=== PATIENT | female | born 1965 | race African-American/Black ===

== ENCOUNTER 2017-06-21 03:28 | Observation (INO) ==
[2017-06-21] MEDS ORDERED: 0.9 % Sodium Chloride 1,000 ML IVC ONE ×2 (03:39→04:27)
[2017-06-21] MEDS ORDERED: *HR* Nalbuphine 20 MG/ML AMPUL IVP ONE (03:39)
[2017-06-21] MEDS ORDERED: Ondansetron 4 MG/2 ML VIAL IVP ONE (03:40)
--- NOTE | 2017-06-21 03:41 | Emergency Department Note ---
Disposition Clinical Impression: Enteritis, Dehydration Disposition: Admitted As Inpatient Condition: Fair Abdominal Pain HPI - General Chief Complaint: ED Abdominal Pain Stated Complaint: lower abd pain Time Seen by Provider: 06/21/17 03:34 Source: patient, family Mode of arrival: private vehicle Limitations: no limitations Nursing Notes Reviewed: Yes Vital Signs Reviewed: Yes - History of Present Illness Pt Subjective Complaint: abdominal pain Onset (ago): hour(s) (7pm) Consistency: constant Location: suprapubic Pain Severity: severe Pain Scale: 10 Quality: cramping, stabbing, sharp Radiation: none Migration to: no migration Improves with: nothing Worsens with: nothing Context: new medications (on 3rd day of Progestin taper - prescribed by her METEOROLOGIST LIAISON for menorrhagia) Associated symptoms: Reports: diarrhea (several "loose"bowel movements today). Denies: nausea, vomiting, fever, chills, constipation, dysuria, hematochezia, melena, hematuria, anorexia, syncope Treatments prior to arrival: none - Related Data LMP (females 10-50): last week Home Medications Medication Instructions Recorded Confirmed Accupril 06/01/15 06/01/15 Chlorthalidone 09/26/16 Klor-Con 09/26/16 09/26/16 Pantoprazole 09/26/16 Previous Rx's Medication Instructions Recorded Nitrofurantoin (BID) [Macrobid] 100 mg PO BID #14 capsule 09/26/16 Phenazopyridine HCl [Pyridium] 200 mg PO TID #6 tab 09/26/16 Allergies Allergy/AdvReac Type Severity Reaction Status Date / Time [id number] Reductase Allergy Hives Verified 09/26/16 13:36 Inhibitor [Statins] All systems ED: reviewed and negative except as stated. Review of Systems: As Per HPI Constitutional: Denies: fever, chills, weakness Cardiovascular: Denies: chest pain, palpitations, dyspnea on exertion Respiratory: Denies: dyspnea Gastrointestinal: Reports: as per HPI, abdominal pain, diarrhea. Denies: nausea , vomiting, constipation Genitourinary: Reports: as per HPI, abnormal menses. Denies: urgency, dysuria, frequency, hematuria, discharge Musculoskeletal: Denies: back pain, neck pain, joint swelling, arthralgia Neurological: Denies: headache Hematological/Lymphatic: Denies: easy bleeding, easy bruising Abdominal Pain PMH - Past Medical History Medical history: Reports: diabetes, hypertension Female Surgical History: Reports: cholecystectomy [employer] history: Reports: bilateral tubal ligation Psychiatric history: Reports: no psych history - Social History Smoking status: Never smoker Alcohol use: Reports: none Drug use: Reports: none Physical Exam - General Limitations: no limitations General appearance: alert, in distress - Head Head exam: atraumatic, normocephalic, normal inspection - Eye Eye exam: Present: normal appearance, PERRL. Absent: scleral icterus, conjunctival injection, periorbital swelling - ENT ENT exam: mucous membranes moist - Neck Neck exam: Present: normal inspection, full ROM, trachea midline. Absent: meningismus - Chest Chest inspection: Present: normal inspection - Respiratory Respiratory exam: Present: normal lung sounds bilaterally. Absent: respiratory distress - Cardiovascular Cardiovascular exam: Present: normal rhythm, tachycardia - Abdominal Exam Abdominal exam: Present: soft, tenderness. Absent: distention, guarding, rebound, rigidity, mass, pulsatile mass Abdominal tenderness: Present: suprapubic, moderate - Female External Exam: Present: pt deferred Speculum Exam: Present: Pt Deferred Bimanual Exam: Present: Pt Deferred - Extremities Exam Extremities exam: Present: normal inspection. Absent: pedal edema - Back Exam Back exam: Present: normal inspection. Absent: CVA tenderness (R), CVA tenderness (L) - Neurological Exam Neurological exam: Present: alert, oriented X3, CN II-XII intact, normal gait - Psychiatric Psychiatric exam: Present: normal affect, normal mood - Skin Skin exam: Present: warm, dry, intact, normal color Course Course Narrative: Patient presents from home with c/o severe lower abdominal pain that was acute in onset at 7pm. She has had heavy vaginal bleeding since 06/03 and was recently started on Progestin. She denies known and has had a loreto and BTL in the past, but no other abdominal surgeries. She appears uncomfortable but non- toxic. She is able to ambulate from triage and to and from the bathroom without difficulty. Pain meds, fluids and labs have been ordered. CT will be ordered once renal panel is resulted. CT shows enteritis per Radiologist. Will start ABX and admit. Patient still having pain and nausea. Labs reflect infectious etiology of enteritis. Also dehydration. - Reevaluation(s) Reevaluation #1: patient vomited several times. Zofran given. Time: 03:57 Reevaluation #2: Pain was better, but now has returned. Additional meds ordered. CT pending. Time: 05:16 Vital Signs Temperature 97.6 F 06/21/17 03:30 Pulse Rate 143 06/21/17 03:30 Respiratory Rate 22 06/21/17 03:30 Blood Pressure 149/90 06/21/17 03:30 O2 Sat by Pulse Oximetry 100 06/21/17 03:30 Temperature 97.6 F 06/21/17 03:30 Pulse Rate 99 06/21/17 05:05 Respiratory Rate 18 06/21/17 05:05 Blood Pressure 132/85 06/21/17 05:05 O2 Sat by Pulse Oximetry 97 06/21/17 05:05 Oxygen Delivery Oxygen Delivery Room Air Abdominal Pain - Medical Records Medical records reviewed: Yes I reviewed the patient's medical records. - Lab Data Lab results reviewed: Yes I reviewed the patient's lab results. Lab results narrative: Laboratory Last Values WBC 15.3 K/mcL (4.3-11.1) H D 06/21/17 03:57 RBC 3.91 M/mcL (3.82-4.97) 06/21/17 03:57 Hgb 9.8 g/dL (11.5-15.4) L D 06/21/17 03:57 Hct 30.5 % (35.3-44.9) L 06/21/17 03:57 MCV 78.0 fL (83.0-100.0) L 06/21/17 03:57 MCH 25.1 pg (28.0-33.3) L 06/21/17 03:57 MCHC 32.1 g/dL (31.6-35.5) 06/21/17 03:57 RDW 14.6 % (11.5-14.5) H 06/21/17 03:57 Plt Count 535 K/mcL (140-400) H D 06/21/17 03:57 MPV 10.6 fL (9.4-12.4) 06/21/17 03:57 Immature Gran % 0.5 % (0-4) 06/21/17 03:57 Seg Neutrophils % 81.8 % 06/21/17 03:57 Lymphocytes % 13.6 % 06/21/17 03:57 Monocytes % 3.6 % 06/21/17 03:57 Eosinophils % 0.2 % 06/21/17 03:57 Basophils % 0.3 % 06/21/17 03:57 Neutrophils # 12.5 K/mcL (1.6-8.9) H 06/21/17 03:57 Lymphocytes # 2.1 K/mcL (0.6-4.6) 06/21/17 03:57 Monocytes # 0.6 K/mcL (0.0-1.3) 06/21/17 03:57 Eosinophils # 0.0 K/mcL (0.0-0.6) 06/21/17 03:57 Basophils # 0.1 K/mcL (0.0-0.2) 06/21/17 03:57 Sodium 136 mEq/L (136-145) 06/21/17 03:57 Potassium 3.3 mEq/L (3.5-4.5) L 06/21/17 03:57 Chloride 100 mEq/L (98-109) 06/21/17 03:57 Carbon Dioxide 22 mEq/L (19-29) 06/21/17 03:57 BUN 10 mg/dL (7-20) 06/21/17 03:57 Creatinine 0.84 mg/dL (0.57-1.11) 06/21/17 03:57 Est GFR ( Amer) > 60 (> 60) 06/21/17 03:57 Est GFR (Non-Af Amer) > 60 (> 60) 06/21/17 03:57 BUN/Creatinine Ratio 12 (6-26) 06/21/17 03:57 Glucose 150 mg/dL (70-99) H 06/21/17 03:57 Calculated Osmolality 284 (280-300) 06/21/17 03:57 Calcium 9.7 mg/dL (8.6-10.8) 06/21/17 03:57 Ur Specimen Adequacy See below A 06/21/17 04:00 Urine Color Dark Yellow (Yellow) 06/21/17 04:00 Urine Clarity Cloudy (Clear) A 06/21/17 04:00 Urine pH 7.5 pH Units (5.0-8.0) 06/21/17 04:00 Ur Specific [place] 1.028 (1.010-1.025) H 06/21/17 04:00 Urine Protein 30 mg/dL (Neg-Trace) H 06/21/17 04:00 Urine Glucose (UA) Normal mg/dL (Normal) 06/21/17 04:00 Urine Ketones >=160 mg/dL (Negative) H 06/21/17 04:00 Urine Blood Moderate (Negative) H 06/21/17 04:00 Urine Nitrite Negative (Negative) 06/21/17 04:00 Urine Bilirubin Small (Negative) H 06/21/17 04:00 Urine Urobilinogen Normal mg/dL (Normal) 06/21/17 04:00 Ur Leukocyte Esterase Small (Negative) H 06/21/17 04:00 Urine Microscopic RBC 3-5 per hpf (0-3) H 06/21/17 04:00 Urine Microscopic WBC 5-15 per hpf (0-3) H 06/21/17 04:00 Ur Squamous Epith Cells Many per lpf (None-Few) H 06/21/17 04:00 Urine Bacteria Few per hpf (None-Few) 06/21/17 04:00 Hyaline Casts Few per lpf (None-Few) 06/21/17 04:00 Urine Mucus Few (Few) 06/21/17 04:00 Ur Culture Indicated? YES (NO) A 06/21/17 04:00 Urine Test Negative (Negative) 06/21/17 04:00 Blood Type O POSITIVE 06/21/17 03:57 Antibody Screen NEGATIVE 06/21/17 03:57 Result diagrams: 06/21/17 03:57 06/21/17 03:57 Lab Results 06/21/17 06/21/17 06/21/17 Range/Units 03:57 03:57 03:57 WBC 15.3 H D (4.3-11.1) K/mcL RBC 3.91 (3.82-4.97) M/mcL Hgb 9.8 L D (11.5-15.4) g/dL Hct 30.5 L (35.3-44.9) % MCV 78.0 L (83.0-100.0) fL MCH 25.1 L (28.0-33.3) pg MCHC 32.1 (31.6-35.5) g/dL RDW 14.6 H (11.5-14.5) % Plt Count 535 H D (140-400) K/mcL MPV 10.6 (9.4-12.4) fL Immature Gran % 0.5 (0-4) % Seg Neutrophils % 81.8 % Lymphocytes % 13.6 % Monocytes % 3.6 % Eosinophils % 0.2 % Basophils % 0.3 % Neutrophils # 12.5 H (1.6-8.9) K/mcL Lymphocytes # 2.1 (0.6-4.6) K/mcL Monocytes # 0.6 (0.0-1.3) K/mcL Eosinophils # 0.0 (0.0-0.6) K/mcL Basophils # 0.1 (0.0-0.2) K/mcL Sodium 136 (136-145) mEq/L Potassium 3.3 L (3.5-4.5) mEq/L Chloride 100 (98-109) mEq/L Carbon Dioxide 22 (19-29) mEq/L BUN 10 (7-20) mg/dL Creatinine 0.84 (0.57-1.11) mg/dL Est GFR ( Amer) > 60 (> 60) Est GFR (Non-Af Amer) > 60 (> 60) BUN/Creatinine Ratio 12 (6-26) Glucose 150 H (70-99) mg/dL Calculated Osmolality 284 (280-300) Calcium 9.7 (8.6-10.8) mg/dL Ur Specimen Adequacy Urine Color (Yellow) Urine Clarity (Clear) Urine pH (5.0-8.0) pH Units Ur Specific [place] (1.010-1.025) Urine Protein (Neg-Trace) mg/dL Urine Glucose (UA) (Normal) mg/dL Urine Ketones (Negative) mg/dL Urine Blood (Negative) Urine Nitrite (Negative) Urine Bilirubin (Negative) Urine Urobilinogen (Normal) mg/dL Ur Leukocyte Esterase (Negative) Urine Microscopic RBC (0-3) per hpf Urine Microscopic WBC (0-3) per hpf Ur Squamous Epith Cells (None-Few) per lpf Urine Bacteria (None-Few) per hpf Hyaline Casts (None-Few) per lpf Urine Mucus (Few) Ur Culture Indicated? (NO) Urine Test (Negative) Blood Type O POSITIVE Antibody Screen NEGATIVE 06/21/17 06/21/17 Range/Units 04:00 04:00 WBC (4.3-11.1) K/mcL RBC (3.82-4.97) M/mcL Hgb (11.5-15.4) g/dL Hct (35.3-44.9) % MCV (83.0-100.0) fL MCH (28.0-33.3) pg MCHC (31.6-35.5) g/dL RDW (11.5-14.5) % Plt Count (140-400) K/mcL MPV (9.4-12.4) fL Immature Gran % (0-4) % Seg Neutrophils % % Lymphocytes % % Monocytes % % Eosinophils % % Basophils % % Neutrophils # (1.6-8.9) K/mcL Lymphocytes # (0.6-4.6) K/mcL Monocytes # (0.0-1.3) K/mcL Eosinophils # (0.0-0.6) K/mcL Basophils # (0.0-0.2) K/mcL Sodium (136-145) mEq/L Potassium (3.5-4.5) mEq/L Chloride (98-109) mEq/L Carbon Dioxide (19-29) mEq/L BUN (7-20) mg/dL Creatinine (0.57-1.11) mg/dL Est GFR ( Amer) (> 60) Est GFR (Non-Af Amer) (> 60) BUN/Creatinine Ratio (6-26) Glucose (70-99) mg/dL Calculated Osmolality (280-300) Calcium (8.6-10.8) mg/dL Ur Specimen Adequacy See below A Urine Color Dark Yellow (Yellow) Urine Clarity Cloudy A (Clear) Urine pH 7.5 (5.0-8.0) pH Units Ur Specific [place] 1.028 H (1.010-1.025) Urine Protein 30 H (Neg-Trace) mg/dL Urine Glucose (UA) Normal (Normal) mg/dL Urine Ketones >=160 H (Negative) mg/dL Urine Blood Moderate H (Negative) Urine Nitrite Negative (Negative) Urine Bilirubin Small H (Negative) Urine Urobilinogen Normal (Normal) mg/dL Ur Leukocyte Esterase Small H (Negative) Urine Microscopic RBC 3-5 H (0-3) per hpf Urine Microscopic WBC 5-15 H (0-3) per hpf Ur Squamous Epith Cells Many H (None-Few) per lpf Urine Bacteria Few (None-Few) per hpf Hyaline Casts Few (None-Few) per lpf Urine Mucus Few (Few) Ur Culture Indicated? YES A (NO) Urine Test Negative (Negative) Blood Type Antibody Screen - Radiology Data Radiology results reviewed: Yes I reviewed the patient's radiology results. Abdomen/Pelvis CT 06/21/17 04:26 IMPRESSION: Enteritis, likely infectious or inflammatory. D/ / Jeffrey Mann MD / Jeffrey Mann MD Interpreting Provider: Jeffrey Mann MD Attestation Statement - Attestation Attestation: I, Rell Perrin MD, personally evaluated this patient and discussed their management with the midlevel provicer, PAC/PAINTING DEPARTMENT SUPERVISOR. I reviewed the midlevel provider 's note and agree with the documented findings, medical decision making, and plan of care. 51-year-old female presents to the emergency department with a complaint of severe periumbilical abdominal pain that started about 7 PM this evening associated with multiple episodes of nausea and vomiting. No diarrhea. No melena, hematemesis, or hematochezia. No fever. No urinary symptoms. Patient has recently been having problems with heavy vaginal bleeding but was started on medication and is currently resolved. On examination patient is a well-developed well-nourished female in no acute distress. She is alert and oriented 3. There is no cyanosis or diaphoresis. Breath sounds are clear and equal bilaterally. Heart regular rate and rhythm. Abdomen is soft sounds. There is moderate periumbilical abdominal tenderness with no guarding or rebound tenderness. No CVA tenderness. Labs reviewed. WBC 15.3. A CT of the abdomen and pelvis obtained and shows marked small bowel wall thickening in the central and lower abdomen consistent with enteritis of inflammatory or infectious etiology. Hospitalist, Dr. White, was consulted and accepted admission of the patient.
[2017-06-21 04:12] LABS: Bilirubin,Urine Small (Negative); Blood,Urine Moderate (Negative); Clarity,Urine Cloudy (Clear); Color,Urine Dark Yellow (Yellow); Glucose,Urine (UA) Normal (Normal); Ketones,Urine >=160 mg/dL (Negative); Leukocyte Esterase,Urine Small (Negative); Nitrite,Urine Negative (Negative); PH,Urine 7.5 pH Units (5.0-8.0); Protein,Urine 30 mg/dL (Neg-Trace); Specific Gravity,Urine 1.028 (1.010-1.025); Urobilinogen,Urine Normal (Normal)
[2017-06-21 04:12] LABS: Basophils % 0.3 %; Eosinophils % 0.2 %; Hematocrit 30.5 % (35.3-44.9); Immature Granulocytes % 0.5 % (0-4); Lymphocytes # 2.1 K/mcL (0.6-4.6); Lymphocytes % 13.6 %; Mean Corpuscular HGB Conc 32.1 g/dL (31.6-35.5); Mean Corpuscular Hemoglobin 25.1 pg (28.0-33.3); Mean Platelet Volume 10.6 fL (9.4-12.4); Monocytes # 0.6 K/mcL (0.0-1.3); Monocytes % 3.6 %; Neutrophils # 12.5 K/mcL (1.6-8.9); Platelet Count 535 K/mcL (140-400); Red Blood Count 3.91 M/mcL (3.82-4.97); Red Cell Distribution Width 14.6 % (11.5-14.5); Segmented Neutrophils % 81.8 %
[2017-06-21 04:15] LABS: Basophils # 0.1 K/mcL (0.0-0.2); Hemoglobin 9.8 g/dL (11.5-15.4)
[2017-06-21 04:17] LABS: Bacteria,Urine Few per hpf (None-Few); Hyaline Casts,Urine Few per lpf (None-Few); Mucus,Urine Few (Few); Squamous Epithelial Cell,Urine Many per lpf (None-Few)
[2017-06-21 04:27] LABS: BUN/Creatinine Ratio 12 (6-26); Blood Urea Nitrogen 10 mg/dL (7-20); Calcium 9.7 mg/dL (8.6-10.8); Carbon Dioxide 22 mEq/L (19-29); Chloride 100 mEq/L (98-109); Glucose 150 mg/dL (70-99); Osmolality,Calculated 284 (280-300); Potassium 3.3 mEq/L (3.5-4.5); Sodium 136 mEq/L (136-145); eGFR For African Americans > 60 (> 60); eGFR For Non-African Americans > 60 (> 60)
[2017-06-21] MEDS ORDERED: *HR* Nalbuphine 20 MG/ML AMPUL IVP STA (05:02)
[2017-06-21] MEDS ORDERED: MetroNIDAZOLE 500 MG/100 ML 500 MG/100 ML BAG IVPB ONE (05:17)
[2017-06-21] MEDS ORDERED: *HR* Nalbuphine 20 MG/ML AMPUL IVP PRN (08:42)
--- NOTE | 2017-06-21 09:40 | Internal Med History&Physical ---
Date of Encounter: 06/21/17 Time of Encounter: 09:37 Assessment and Plan (1) Acute gastroenteritis Current visit: Yes Status: Acute Diagnosed based on severe midabdominal pain, elevated WBC and CT findings consistent with enteritis Etiology could be infectious either viral or bacterial versus inflammatory. Plan: Start Levaquin and Flagyl for possible bacterial etiology. Check stool GI panel if the patient has diarrhea. We will provide pain control with IV morphine. Start clear liquid diet. We will treat nausea with IV Zofran (2) Dehydration Current visit: Yes Status: Acute Appears clinically dehydrated. We will treat her with IV fluids. (3) Hypokalemia Current visit: Yes Status: Acute IV potassium supplementation. Check magnesium level and replete if necessary. (4) Essential hypertension Current visit: Yes Status: Acute Resume oral antihypertensive medications (5) DVT prophylaxis Current visit: Yes Status: Acute Subcutaneous heparin. (6) Microcytic anemia Current visit: Yes Status: Acute CBC reveals hypochromic microcytic anemia with elevated RDW suggestive of iron deficiency anemia. She reports heavy menses. We will check iron panel. Internal Medicine - H&P: HPI Chief complaint: Abdominal pain Admitted From: Emergency Dept Plans for Post Hospital Care: Home History of present illness: Ms. Spann is a 51 year old female who presented to the hospital for evaluation of severe mid abdominal pain which started abruptly yesterday at 7 PM , associated with nausea and 1 episode of nonbloody vomiting this morning. Pain improved with Nubain which she was administered in the emergency department. Denies having diarrhea, had 2 normal nonbloody bowel movements yesterday, denies fevers and chills. Denies sick contacts, recent travel, unusual foods, recent antibiotic use. Family history positive for stroke in the patient's father and type 2 diabetes the patient's mother Social history: Denies tobacco alcohol and drug use. Past Med Surg Social Fam HX - Past Medical History Medical history: diabetes, GERD, hypertension Psychiatric history: no psych history - Past Surgical History Surgical History: cholecystectomy - Social History Smoking Status: Never smoker Smokeless Tobacco Status: No Alcohol use: none Drug use: none Internal Medicine - H&P: Meds Accupril 06/01/15 [History] Chlorthalidone 09/26/16 [History] Klor-Con 09/26/16 [History] Nitrofurantoin (BID) [Macrobid] 100 mg PO BID #14 capsule 09/26/16 [Rx] Pantoprazole 09/26/16 [History] Phenazopyridine HCl [Pyridium] 200 mg PO TID #6 tab 09/26/16 [Rx] 3 Allergy/AdvReac Type Severity Reaction Status Date / Time [id number] Reductase Allergy Hives Verified 09/26/16 13:36 Inhibitor [Statins] All Systems PM: A 10-system review of systems was performed and is negative for pertinent findings except as documented above in the HPI. - Constitutional Vitals: Temp Pulse Resp BP Pulse Ox 97.7 F 96 17 141/85 98 06/21/17 07:53 06/21/17 07:53 06/21/17 07:53 06/21/17 07:53 06/21/17 07:53 General appearance: Present: mild distress, A&O X 3, answers questions appropriately - Eye Eye exam: Present: PERRL, conjuntiva pink, sclera anicteric Pupils: Present: PERRL - Respiratory Respiratory exam: Present: CTAB. Absent: accessory muscle use, rales, rhonchi, wheezes - Cardiovascular Cardiovascular exam: Present: RRR, +S1, +S2. Absent: diastolic murmur, gallop, rubs, systolic murmur - GI/Abdominal GI/Abdominal exam: Present: normal bowel sounds, soft, no peritoneal signs. Absent: distended, tenderness - Extremities Exam Extremities exam: Present: warm, radial pulses palpable and symmetrical. Absent : calf tenderness, cyanotic, pedal edema - Skin Skin exam: Present: dry, intact Internal Med - H&P Results - Labs CBC & Chem 7: 06/21/17 03:57 06/21/17 03:57 - Impressions CT abdomen and pelvis shows normal appendix, edema of the small bowel wall consistent with enteritis and small amount of pelvic ascites. This study was personally reviewed.
[2017-06-21] MEDS ORDERED: Acetaminophen 325 MG TABLET PO PRN (09:50)
[2017-06-21] MEDS ORDERED: Naloxone 0.4 MG/ML INJ IVP PRN (09:50)
[2017-06-21] MEDS ORDERED: *HR* HYDROcodone/Acet 5/325 mg TABLET PO PRN (09:50)
[2017-06-21] MEDS ORDERED: *HR* Promethazine 25 MG/ML VIAL IVP PRN (09:50)
[2017-06-21 10:34] LABS: Magnesium 1.5 mg/dL (1.6-2.6)
[2017-06-21] MEDS: 0.9 % Sodium Chloride w KCl 20 MEQ/1,000 ML MLS IVC SCH ×2 (11:09→17:01)
[2017-06-21] MEDS: *HR* Morphine 2 MG/ML SYRINGE IVP PRN ×2 (11:21→22:48)
[2017-06-21] MEDS: *HR* Heparin 5,000 UNIT/ML VIAL SQ SCH ×2 (14:38→20:28)
[2017-06-21] MEDS: MetroNIDAZOLE 500 MG/100 ML 500 MG/100 ML BAG IVPB SCH ×2 (17:04→23:54)
[2017-06-21] MEDS: Ondansetron 4 MG/2 ML VIAL IVP PRN (17:46)
[2017-06-21] MEDS: Famotidine 20 MG/2 ML VIAL IVP SCH (18:36)
[2017-06-21] MEDS ORDERED: Iron Sucrose Complex 400 MG in 0.9 % Sodium Chloride 250 ML IVPB ONE (18:51)
[2017-06-21] MEDS: Lisinopril 20 MG TABLET PO SCH (22:09)
[2017-06-22] MEDS: *HR* Morphine 2 MG/ML SYRINGE IVP PRN (03:04)
[2017-06-22] MEDS: Ondansetron 4 MG/2 ML VIAL IVP PRN (03:08)
[2017-06-22] MEDS: *HR* Heparin 5,000 UNIT/ML VIAL SQ SCH (04:06)
[2017-06-22 05:38] LABS: Basophils # 0.1 K/mcL (0.0-0.2); Basophils % 0.4 %; Eosinophils % 0.1 %; Hematocrit 25.6 % (35.3-44.9); Immature Granulocytes % 0.5 % (0-4); Lymphocytes # 1.2 K/mcL (0.6-4.6); Lymphocytes % 9.2 %; Mean Corpuscular HGB Conc 31.6 g/dL (31.6-35.5); Mean Corpuscular Hemoglobin 25.3 pg (28.0-33.3); Mean Platelet Volume 10.4 fL (9.4-12.4); Monocytes # 0.6 K/mcL (0.0-1.3); Monocytes % 4.2 %; Neutrophils # 11.3 K/mcL (1.6-8.9); Nucleated Red Blood Cells 0.2 /100 WBC (0); Platelet Count 408 K/mcL (140-400); Red Cell Distribution Width 14.7 % (11.5-14.5); Segmented Neutrophils % 85.6 %
[2017-06-22 05:40] LABS: Hemoglobin 8.1 g/dL (11.5-15.4)
[2017-06-22 05:54] LABS: Alanine Aminotransferase 45 Units/L (0-55); Albumin 2.5 g/dL (3.5-5.0); Albumin/Globulin Ratio 0.9 (1.1-2.2); Alkaline Phosphatase 39 Units/L (38-126); Aspartate Amino Transferase 34 Units/L (5-34); BUN/Creatinine Ratio 8 (6-26); Bilirubin,Total 0.3 mg/dL (0.2-1.2); Blood Urea Nitrogen 6 mg/dL (7-20); Carbon Dioxide 22 mEq/L (19-29); Chloride 107 mEq/L (98-109); Globulin 2.9 g/dL (2.4-3.5); Glucose 179 mg/dL (70-99); Magnesium 1.2 mg/dL (1.6-2.6); Osmolality,Calculated 290 (280-300); Potassium 2.9 mEq/L (3.5-4.5); Sodium 139 mEq/L (136-145); Total Protein 5.4 g/dL (6.0-8.3); eGFR For African Americans > 60 (> 60); eGFR For Non-African Americans > 60 (> 60)
[2017-06-22 05:56] LABS: Calcium 7.3 mg/dL (8.6-10.8)
[2017-06-22] MEDS: Famotidine 20 MG/2 ML VIAL IVP SCH ×2 (06:04→22:50)
[2017-06-22] MEDS: MetroNIDAZOLE 500 MG/100 ML 500 MG/100 ML BAG IVPB SCH ×3 (08:03→23:24)
[2017-06-22] MEDS: Lisinopril 20 MG TABLET PO SCH (08:04)
[2017-06-22] MEDS ORDERED: Magnesium Sulfate 1 GM in D5% in Water 100 ML IVPB ONE (09:14)
[2017-06-22] MEDS ORDERED: Potassium Chloride 40 MEQ, Lidocaine 1% 2 ML in D5% in Water 500 ML IVPB ONE (11:29)
[2017-06-22] MEDS ORDERED: D5% in Water 1,000 ML IVC PRN (12:01)
[2017-06-22] MEDS ORDERED: Dextrose Gel 15 GM PO PRN ×2 (12:01)
[2017-06-22] MEDS ORDERED: *HR* Dextrose 50 % in Water (Syg) 50 ML SYRINGE IVP PRN (12:01)
[2017-06-22] MEDS: Insulin LISPRO 300 UNITS/3 ML VIAL SQ SCH ×2 (15:32→22:51)
--- NOTE | 2017-06-22 18:03 | Internal Med Progress Note ---
Date of Encounter: 06/22/17 Time of Encounter: 11:00 - Assessment and plan (1) Acute gastroenteritis Current Visit: Yes Status: Acute Assessment and plan: -CT of the abdomen/pelvis showed enteritis, likely infectious or inflammatory. -Continue clear liquid diet and continue IV Cipro/Flagyl. -Re-evaluate on 06/23/17. (2) Microcytic anemia Current Visit: Yes Status: Acute Assessment and plan: -Patient with a hemoglobin of 8.1 this morning; patient did have a hemoglobin of 12 and 2016 per EMR. -Patient is hemodynamically stable -Suspect acute blood loss anemia secondary to metromenorrhagia; patient being evaluated/worked up by LASTING ROOM MACHINE OPERATOR as outpatient. -Continue monitor hemoglobin levels. (3) Essential hypertension Current Visit: Yes Status: Acute Assessment and plan: -Blood pressure control; continue home medications. (4) Hypokalemia Current Visit: Yes Status: Acute Assessment and plan: -Patient with a potassium of 2.9 this morning after replacements were given on 06/21/17. -An additional 40 mEq of KCl was given today. -Patient has been placed on telemetry and will monitor potassium. (5) DVT prophylaxis Current Visit: Yes Status: Acute Assessment and plan: Patient to ambulate; we will not give chemical prophylaxis secondary to anemia above. - Subjective Interval history: Patient complains of some nausea/abdominal discomfort overnight after by mouth. - Constitutional Vitals: Temp Pulse Resp BP Pulse Ox 99.1 F 72 18 131/78 98 06/22/17 16:02 06/22/17 16:02 06/22/17 16:02 06/22/17 16:02 06/22/17 16:02 General appearance: Present: mild distress, A&O X 3, answers questions appropriately - Respiratory Respiratory exam: Present: CTAB. Absent: accessory muscle use, rales, rhonchi, wheezes - Cardiovascular Cardiovascular exam: Present: RRR, +S1, +S2. Absent: diastolic murmur, gallop, rubs, systolic murmur - GI/Abdominal GI/Abdominal exam: Present: normal bowel sounds, soft, no peritoneal signs. Absent: distended, tenderness Internal Medicine: Result - Labs CBC & Chem 7: 06/22/17 05:03 06/22/17 05:03 Labs: Short CBC 06/22/17 Range/Units 05:03 WBC 13.2 H (4.3-11.1) K/mcL Hgb 8.1 L D (11.5-15.4) g/dL Hct 25.6 L (35.3-44.9) % Plt Count 408 H (140-400) K/mcL Neutrophils # 11.3 H (1.6-8.9) K/mcL BMP 06/22/17 05:03 Sodium 139 Potassium 2.9 L Chloride 107 Carbon Dioxide 22 BUN 6 L Creatinine 0.73 Glucose 179 H Calcium 7.3 L D Liver Function 06/22/17 Range/Units 05:03 Total Bilirubin 0.3 (0.2-1.2) mg/dL AST 34 (5-34) Units/L ALT 45 (0-55) Units/L Alkaline Phosphatase 39 (38-126) Units/L Albumin 2.5 L (3.5-5.0) g/dL Consult Discharge Plan - Plan Referrals: Steve Whittaker MD [Primary Care Provider] -
[2017-06-22 18:37] LABS: Hematocrit 24.5 % (35.3-44.9); Hemoglobin 7.5 g/dL (11.5-15.4)
[2017-06-23 00:37] LABS: Hematocrit 21.6 % (35.3-44.9); Hemoglobin 6.7 g/dL (11.5-15.4)
[2017-06-23] MEDS: *HR* Heparin 5,000 UNIT/ML VIAL SQ SCH (05:06)
[2017-06-23] MEDS: Famotidine 20 MG/2 ML VIAL IVP SCH (06:44)
[2017-06-23 07:09] LABS: Hematocrit 21.5 % (35.3-44.9); Hemoglobin 6.7 g/dL (11.5-15.4)
[2017-06-23] MEDS: Insulin LISPRO 300 UNITS/3 ML VIAL SQ SCH ×4 (08:35→21:15)
[2017-06-23] MEDS ORDERED: NON-FORMULARY MEDICATION 1 EACH EACH (Quinapril Hcl [Accupril] 20 MG) PO SCH (09:00)
[2017-06-23] MEDS: Lisinopril 20 MG TABLET PO SCH (09:21)
[2017-06-23] MEDS: MetroNIDAZOLE 500 MG/100 ML 500 MG/100 ML BAG IVPB SCH ×2 (09:21→16:32)
--- NOTE | 2017-06-23 11:38 | Internal Med Progress Note ---
<Will Dawson - Last Filed: 06/23/17 14:03> Date of Encounter: 06/23/17 - Constitutional Vitals: Temp Pulse Resp BP Pulse Ox 98.4 F 97 16 127/81 99 06/23/17 12:10 06/23/17 12:10 06/23/17 12:10 06/23/17 12:10 06/23/17 12:10 Internal Medicine: Result - Labs CBC & Chem 7: 06/23/17 06:15 06/22/17 18:16 Labs: Short CBC 06/22/17 06/23/17 06/23/17 Range/Units 18:16 00:27 06:15 Hgb 7.5 L 6.7 L 6.7 L (11.5-15.4) g/dL Hct 24.5 L 21.6 L 21.5 L (35.3-44.9) % BMP 06/22/17 18:16 Potassium 3.2 L Consult Discharge Plan - Plan Referrals: Steve Whittaker MD [Primary Care Provider] - 07/01/17 1:00 pm - Attending Attestation I have independently seen and examined this patient on 06/23/17 and discussed plan of care with the patient and the resident physician 51 F with PMH of HTN. admitted and being managed for acute gastritis and severe iron deficiency anemia secondary to metromenorrhagia her symptom have improved but she has severe anemia with Hb 6.7 and iron level of 15 She endorsed prior history of iron deficiency Physical exam: VSS, ambulatory. Not in any form of distress. Speaks full sentences. Chest is claer, abdomen is soft and not tender, no pedal edema. labs: Leukocytosis, anemia, hypomagnessemia, hypokalemia A/P: Gastroenteritis: By CT scan, continue antibiotics, give 1 unit RBC for iron deficiency anemia, give IV iron today. Start po iron tmrw, replace electrolytes, continue other meds Rest of details as in resident physician's documentation <Ana Dumont H - Last Filed: 06/23/17 16:29> Date of Encounter: 06/23/17 Time of Encounter: 11:00 - Assessment and plan (1) Acute gastroenteritis Current Visit: Yes Status: Acute Assessment and plan: -CT of the abdomen/pelvis showed enteritis, likely infectious or inflammatory. -Advanced diet to cardiac diet today as patient was hungry. -Day 3 IV Cipro/Flagyl. -Patient to be discharged home tomorrow provided hemoglobin is stable as her nausea and vomiting has resolved. (2) Microcytic anemia Current Visit: Yes Status: Acute Assessment and plan: -Patient with a hemoglobin of 6.7 this morning; patient did have a hemoglobin of 12 and 2016 per EMR. -Patient is hemodynamically stable -Suspect acute blood loss anemia secondary to metromenorrhagia; patient being evaluated/worked up by CIRCUIT RECORDER as outpatient. -Patient given 1 unit of red blood cells today. We will recheck H&H. -We added oral iron 100 mg daily with ascorbic acid and Colace. Patient did not want consultation with hematology. She will follow up with her primary care provider on an outpatient basis. - If stable, discharge tomorrow. (3) Hypokalemia Current Visit: Yes Status: Acute Assessment and plan: -Patient with a potassium of 3.2 yesterday after replacements were given on 06/21. -Continue with repletion of potassium. (4) Dehydration Current Visit: Yes Status: Acute Assessment and plan: Patient is is adequately hydrated and has advanced to a cardiac diet. (5) Essential hypertension Current Visit: Yes Status: Acute Assessment and plan: -Blood pressure control; continue home medications. (6) DVT prophylaxis Current Visit: Yes Status: Acute Assessment and plan: Patient to ambulate; we will not give chemical prophylaxis secondary to anemia above. - Subjective Interval history: Miss Spann is a 51-year-old female with past medical history of diabetes, GERD , and hypertension. She presented to the hospital with acute gastroenteritis. She is currently being treated for anemia which the patient says is chronic. She was also found to have hypokalemia, which the patient says is chronic and due to her chlorthalidone hypertension medication. Patient is confused about what taking so long for her to be discharged home from the hospital. She did not want to receive a transfusion of blood, however, after questions were answered, she felt much more comfortable. She declined us offering to consult hematology if her anemia. She would like to be discharged home from the hospital tomorrow. - Constitutional Vitals: Temp Pulse Resp BP Pulse Ox 98.0 F 97 14 126/83 99 06/23/17 11:00 06/23/17 11:00 06/23/17 11:00 06/23/17 11:00 06/23/17 11:00 General appearance: Present: A&O X 3, pleasant, no acute distress, answers questions appropriately - Respiratory Respiratory exam: Present: CTAB. Absent: accessory muscle use, rales, rhonchi, wheezes - Cardiovascular Cardiovascular exam: Present: RRR, +S1, +S2. Absent: diastolic murmur, gallop, rubs, systolic murmur - GI/Abdominal GI/Abdominal exam: Present: normal bowel sounds, soft, tenderness (mild lower abdominal). Absent: firm, guarding, rebound, rigid, no peritoneal signs - Extremities Exam Extremities exam: Present: warm, radial pulses palpable and symmetrical. Absent : calf tenderness, cyanotic, pedal edema Internal Medicine: Result - Labs CBC & Chem 7: 06/23/17 15:10 06/22/17 18:16 Labs: Short CBC 06/22/17 06/23/17 06/23/17 Range/Units 18:16 00:27 06:15 Hgb 7.5 L 6.7 L 6.7 L (11.5-15.4) g/dL Hct 24.5 L 21.6 L 21.5 L (35.3-44.9) % BMP 06/22/17 18:16 Potassium 3.2 L
[2017-06-23] MEDS ORDERED: 0.9 % Sodium Chloride 250 ML ONE (11:45)
[2017-06-23 15:38] LABS: Basophils # 0.1 K/mcL (0.0-0.2); Basophils % 0.5 %; Eosinophils # 0.1 K/mcL (0.0-0.6); Eosinophils % 1.3 %; Hematocrit 26.6 % (35.3-44.9); Hemoglobin 8.2 g/dL (11.5-15.4); Immature Granulocytes % 3.3 % (0-4); Lymphocytes # 1.8 K/mcL (0.6-4.6); Lymphocytes % 19.2 %; Mean Corpuscular HGB Conc 30.8 g/dL (31.6-35.5); Mean Corpuscular Hemoglobin 25.2 pg (28.0-33.3); Mean Corpuscular Volume 81.6 fL (83.0-100.0); Mean Platelet Volume 10.2 fL (9.4-12.4); Monocytes # 0.6 K/mcL (0.0-1.3); Monocytes % 6.9 %; Neutrophils # 6.4 K/mcL (1.6-8.9); Nucleated Red Blood Cells 3.6 /100 WBC (0); Platelet Count 385 K/mcL (140-400); Red Blood Count 3.26 M/mcL (3.82-4.97); Red Cell Distribution Width 15.4 % (11.5-14.5); Segmented Neutrophils % 68.8 %
[2017-06-23 16:27] LABS: BUN/Creatinine Ratio 6 (6-26); Carbon Dioxide 28 mEq/L (19-29); Chloride 105 mEq/L (98-109); Glucose 155 mg/dL (70-99); Osmolality,Calculated 288 (280-300); Potassium 3.7 mEq/L (3.5-4.5); Sodium 139 mEq/L (136-145); eGFR For African Americans > 60 (> 60); eGFR For Non-African Americans > 60 (> 60)
[2017-06-23 16:30] LABS: Blood Urea Nitrogen 5 mg/dL (7-20); Calcium 8.7 mg/dL (8.6-10.8)
[2017-06-24] MEDS: MetroNIDAZOLE 500 MG/100 ML 500 MG/100 ML BAG IVPB SCH ×2 (00:11→07:50)
[2017-06-24 05:01] LABS: Basophils % 0.5 %; Eosinophils # 0.1 K/mcL (0.0-0.6); Eosinophils % 1.8 %; Hematocrit 24.9 % (35.3-44.9); Immature Granulocytes % 1.8 % (0-4); Lymphocytes # 2.1 K/mcL (0.6-4.6); Lymphocytes % 26.4 %; Mean Corpuscular HGB Conc 32.1 g/dL (31.6-35.5); Mean Corpuscular Hemoglobin 26.4 pg (28.0-33.3); Mean Corpuscular Volume 82.2 fL (83.0-100.0); Mean Platelet Volume 10.1 fL (9.4-12.4); Monocytes # 0.5 K/mcL (0.0-1.3); Monocytes % 6.8 %; Nucleated Red Blood Cells 3.5 /100 WBC (0); Platelet Count 358 K/mcL (140-400); Red Blood Count 3.03 M/mcL (3.82-4.97); Red Cell Distribution Width 15.5 % (11.5-14.5); Segmented Neutrophils % 62.7 %
[2017-06-24 05:12] LABS: BUN/Creatinine Ratio 7 (6-26); Blood Urea Nitrogen 5 mg/dL (7-20); Calcium 8.6 mg/dL (8.6-10.8); Carbon Dioxide 26 mEq/L (19-29); Chloride 103 mEq/L (98-109); Glucose 110 mg/dL (70-99); Osmolality,Calculated 280 (280-300); Potassium 3.2 mEq/L (3.5-4.5); Sodium 136 mEq/L (136-145); eGFR For African Americans > 60 (> 60); eGFR For Non-African Americans > 60 (> 60)
[2017-06-24 07:01] VITALS: BP 119/75
[2017-06-24] MEDS: Insulin LISPRO 300 UNITS/3 ML VIAL SQ SCH (07:46)
[2017-06-24] MEDS: Lisinopril 20 MG TABLET PO SCH (07:51)
--- NOTE | 2017-06-24 08:33 | Internal Med Progress Note ---
Date of Encounter: 06/24/17 Time of Encounter: 08:31 - Assessment and plan (1) Acute gastroenteritis Current Visit: Yes Status: Acute Assessment and plan: -CT of the abdomen/pelvis showed enteritis, likely infectious or inflammatory. -Advanced diet to cardiac diet today as patient was hungry. -Day 4 IV Cipro/Flagyl. -Patient to be discharged home today as her hemoglobin is stable as her nausea and vomiting has resolved. (2) Microcytic anemia Current Visit: Yes Status: Acute (3) Hypokalemia Current Visit: Yes Status: Acute (4) Dehydration Current Visit: Yes Status: Acute (5) Essential hypertension Current Visit: Yes Status: Acute (6) DVT prophylaxis Current Visit: Yes Status: Acute - Subjective Interval history: Miss Spann is a 51-year-old female with past medical history of diabetes, GERD , and hypertension. She presented to the hospital with acute gastroenteritis. She is currently being treated for anemia which the patient says is chronic. She was also found to have hypokalemia, which the patient says is chronic and due to her chlorthalidone hypertension medication. Patient has rested comfortably, and she wishes to discharge from the hospital today. She was speaking to her TANK HOOP BENDER's nurse when I got to the room. Patient has resumed vaginal bleeding this morning she said she anticipated as they discontinued the hormone pill that she was taking to stop her bleeding during this hospital admission. Patient feels comfortable managing this problem as an outpatient as she will be in contact with her TANK HOOP BENDER. She denies any fatigue, dizziness, nausea, vomiting, diarrhea. She denies any chest pain or shortness of breath. - Constitutional Vitals: Temp Pulse Resp BP Pulse Ox 98.5 F 91 15 119/75 97 06/24/17 06:56 06/24/17 06:56 06/24/17 06:56 06/24/17 06:56 06/24/17 06:56 General appearance: Present: A&O X 3, pleasant, no acute distress, answers questions appropriately - Respiratory Respiratory exam: Present: CTAB. Absent: accessory muscle use, rales, rhonchi, wheezes - Cardiovascular Cardiovascular exam: Present: RRR, +S1, +S2. Absent: diastolic murmur, gallop, rubs, systolic murmur - GI/Abdominal GI/Abdominal exam: Present: normal bowel sounds, soft, no peritoneal signs. Absent: distended, tenderness - Extremities Exam Extremities exam: Present: warm, radial pulses palpable and symmetrical. Absent : calf tenderness, cyanotic, pedal edema Internal Medicine: Result - Labs CBC & Chem 7: 06/24/17 04:43 06/24/17 04:43 Labs: Short CBC 06/23/17 06/24/17 Range/Units 15:10 04:43 WBC 9.3 7.9 (4.3-11.1) K/mcL Hgb 8.2 L D 8.0 L (11.5-15.4) g/dL Hct 26.6 L 24.9 L (35.3-44.9) % Plt Count 385 358 (140-400) K/mcL Neutrophils # 6.4 5.0 (1.6-8.9) K/mcL BMP 06/23/17 06/24/17 15:10 04:43 Sodium 139 136 Potassium 3.7 3.2 L Chloride 105 103 Carbon Dioxide 28 26 BUN 5 L 5 L Creatinine 0.87 0.73 Glucose 155 H 110 H Calcium 8.7 D 8.6 Consult Discharge Plan - Plan Referrals: Steve Whittaker MD [Primary Care Provider] - 07/01/17 1:00 pm
--- NOTE | 2017-06-24 08:43 | Discharge Summary ---
<Ana Dumont H - Last Filed: 06/24/17 11:52> Date of Encounter: 06/24/17 Time of Encounter: 08:42 - Discharge Diagnosis (1) Acute gastroenteritis Priority: Primary Status: Acute (2) Microcytic anemia Priority: Secondary Status: Acute (3) Hypokalemia Priority: Secondary Status: Acute (4) Dehydration Priority: Secondary Status: Acute (5) Essential hypertension Priority: Secondary Status: Acute (6) DVT prophylaxis Priority: Secondary Status: Acute - Discharge Medications Prescriptions: Ascorbic Acid [Vitamin C] 500 mg PO DAILY #30 tablet Ciprofloxacin [Cipro] 500 mg PO BID #12 tablet Docusate [Colace] 100 mg PO DAILY PRN #30 capsule PRN Reason: Constipation Ferrous Sulfate 325 mg PO BIDWM #60 tablet metroNIDAZOLE [Flagyl] 500 mg PO TID #18 tablet Home Medications: Chlorthalidone 25 mg PO DAILY 09/26/16 [History] Pantoprazole Sodium 40 mg PO DAILY 09/26/16 [History] Potassium Chloride [K-Tab ER] 40 meq PO BID 09/26/16 [History] Quinapril HCl [Accupril] 20 mg PO DAILY 06/21/17 [History] metFORMIN [Glucophage] 500 mg PO BID 06/21/17 [History] Acetaminophen [Tylenol] 650 mg PO Q6HR PRN tablet 06/24/17 [Rx] Ascorbic Acid [Vitamin C] 500 mg PO DAILY #30 tablet 06/24/17 [Rx] Ciprofloxacin [Cipro] 500 mg PO BID #12 tablet 06/24/17 [Rx] Docusate [Colace] 100 mg PO DAILY PRN #30 capsule 06/24/17 [Rx] Ferrous Sulfate 325 mg PO BIDWM #60 tablet 06/24/17 [Rx] metroNIDAZOLE [Flagyl] 500 mg PO TID #18 tablet 06/24/17 [Rx] Allergies/Adverse Reactions: 3 Allergy/AdvReac Type Severity Reaction Status Date / Time [id number] Reductase Allergy Hives Verified 09/26/16 13:36 Inhibitor [Statins] Date of admission: 06/21/17 05:44 Primary care physician: Steve Whittaker, - Patient Status Disposition: Home, Self-Care Condition: Fair Overall status at discharge: patient is progressing back to baseline - Discharge Instructions Follow Up With: Steev Whittaker MD [Primary Care Provider] - 07/01/17 1:00 pm Additional Instructions: Follow-up appointments: If there is not an appointment listed below, please call your physician and schedule a follow-up appointment. If you have congestive heart failure and your symptoms return, make an appointment with your physician. Medication List: Carry an up to date list of medications you are taking at all time. We have given you an updated medication list including any new medications that you have been prescribed. Please provide that list to your primary provider Symptoms: If your condition changes or you experience any of the following symptoms, notify your physician immediately: Unusual or worsening pain, fever, persistent nausea and vomiting, bleeding, increase in swelling (especially in your legs), sudden weight gain, extreme dizziness, chest pain, increased drainage or redness from a wound or incision. Go to the emergency department if you experience a problem with breathing. Weights: If you have a history of swelling or shortness of breath, weigh yourself daily and notify your physician if you have a weight gain of two or more pounds in one day or 5 or more pounds in a week. If you experience any of the warning signs for stroke: Sudden numbness or weakness of the face, arm or leg; especially on one side of the body, sudden confusion, trouble speaking or understanding, sudden trouble seeing in one or both eyes, sudden trouble walking, dizziness, loss of balance or coordination, sudden sever headache with no cause; Call 911 or go to the emergency room. Stroke is a medical emergency. Some risk factors for stroke: Age, cigarette smoking, diabetes, excessive alcohol consumption, family history , high blood pressure, overweight, physical inactivity, prior stroke, heart attack, diagnosis of carotid artery stenosis or other artery disease. If you smoke, STOP: Smoking or tobacco use significantly increases your risk of heart and lung disease. Your chance of disease greatly increases if you continue to smoke. For more information, call the [employer] tobacco quit line for smoking cessation QUIT-NOW ( ) Please make sure to get a CBC in 5 days to check the level of hemoglobin in your blood to assess anemia. These results will be sent to your MEAT LOINER and primary care provider. Clair's follow-up with your MEAT LOINER regarding your vaginal bleeding. Also follow-up with your primary care telegraphic typewriter operator chief. - Diet and Activity Activity: increase activity as tolerated Diet: advance to your usual diet Hospital course: Ms. Spann is a 52 year old female with past medical history of diabetes, GERD , and hypertension, she presented to the hospital on Thursday evening with acute gastroenteritis confirmed by CT scan in the emergency department. The patient is currently being treated for anemia on an outpatient basis which she states is chronic secondary to abnormal uterine bleeding. Patient is being followed closely by her outpatient MEAT LOINER for this condition, and she was recently started on a hormone taper to stop her bleeding, which the patient believes was working well. This anemia complicated the course of her hospitalization as her hemoglobin dropped from 8-6.7. Patient was transfused with 1 unit of red blood cells, and started on iron. Patient's abdominal pain, nausea, vomiting cleared up quickly after admission and subsequent treatment with IV antibiotics and pain medications. Patient was found to be chronically hypokalemic during her hospitalization. She was repleted with potassium. Patient stated that she takes oral potassium supplementation as she is being treated with chlorthalidone secondary to hypertension. Patient was resting comfortably and declined a hematology consult for her anemia. We discharged her home with new prescriptions for oral iron supplementation, ascorbic acid, and docusate. She was also given a 6 day course of outpatient treatment with Cipro and metronidazole to complete a 10 day course of antibiotics. Patient received IV metronidazole and ciprofloxacin during her 4 day hospitalization. Patient expressed understanding of the plan and treatment. All questions were answered , and patient was comfortable to be discharged home today. - Time Spent with Patient Total time spent providing and/or coordinating discharge services: - Constitutional Vitals: Temp Pulse Resp BP Pulse Ox 98.5 F 91 15 119/75 97 06/24/17 06:56 06/24/17 06:56 06/24/17 06:56 06/24/17 06:56 06/24/17 06:56 General appearance: Present: A&O X 3, pleasant, no acute distress, answers questions appropriately - Respiratory Respiratory exam: Present: CTAB. Absent: accessory muscle use, rales, rhonchi, wheezes - Cardiovascular Cardiovascular exam: Present: RRR, +S1, +S2. Absent: diastolic murmur, gallop, rubs, systolic murmur - GI/Abdominal GI/Abdominal exam: Present: normal bowel sounds, soft, no peritoneal signs. Absent: distended, tenderness - Extremities Exam Extremities exam: Present: warm, radial pulses palpable and symmetrical. Absent : calf tenderness, cyanotic, pedal edema <Eunice,Will Esparza - Last Filed: 06/24/17 12:43> Date of Encounter: 06/24/17 Date of admission: 06/21/17 05:44 Primary care physician: Steve Whittaker, Discharging clinician: Will Dawson Anticipated date of discharge: 06/24/17 Hospital course: Ms. Spann is a 52 year old female - Time Spent with Patient Total time spent providing and/or coordinating discharge services: - Constitutional Vitals: Temp Pulse Resp BP Pulse Ox 98.5 F 91 15 119/75 97 06/24/17 06:56 06/24/17 06:56 06/24/17 06:56 06/24/17 06:56 06/24/17 06:56 - Attending Attestation I have independently seen and examined this patient on 06/24/17 and discussed plan of care with the patient and the resident physician 51 F with PMH of HTN. admitted and being managed for acute gastritis and severe iron deficiency anemia secondary to metromenorrhagia Her Hb improved after blood transfusion. She reports her menstrual cycles have begun. At time of review, she had spoken to her MOTOR POOL CLERK and will be meeting with them soon Physical exam: VSS, ambulatory. Not in any form of distress. Speaks full sentences. Chest is clear to auscultation bilaterally, abdomen is soft and not tender, no pedal edema. labs: CBC WNL for patient, leukocytosis resolved, Hb stable, A/P: Gastroenteritis:Resolved. [place]: Stable for discharge home. Continue Iron supplements and antibiotics upon discharge. Rest of details as in resident physician's documentation
[2017-06-24] MEDS ORDERED: Famotidine 20 MG TABLET PO SCH (09:00)
[2017-06-24] MEDS ORDERED: Ascorbic Acid 500 MG TABLET PO SCH (09:00)
== END 2017-06-24 10:20 | disposition home or self-care (01) ==
LOC: EMEROO 03:28 → 3ANU 03:28 → SUATTDRO 05:44 → 3ANU 06:30
PROVIDERS: ADMIT Internal Medicine; ATTEND Internal Medicine